=== PATIENT | female | born 1990 | race Caucasian/White ===

== ENCOUNTER 2019-05-27 11:03 | Emergency (ER) | payer OTHER, MEDICAID ==
[~2019-05-27] VITALS: Ht 165.1 cm; Wt 49.4 kg
--- NOTE | 2019-05-27 11:11 | NUR ---
ISABELLE, PD FOR MEDICAL CLEARANCE PRIOR TO BOOKING. ANXIOUS [employer]EL[employer], TO ER BED 11, HOOKED TO MONITOR, VSS. AWAITING MD KING
[2019-05-27 11:35] VITALS: BP 120/71
--- NOTE | 2019-05-27 11:36 | NUR ---
Amaya lee in ED - 05/27/19 at 1136 by MARYJO patient left via ambulatory accompanied by [employer] in custody. Denies any pain or discomfort.
--- NOTE | 2019-05-27 11:36 | NUR ---
Patient discharged in custody in stable condition. Written and verbal after care instructions given. Patient verbalizes understanding of instruction.
== END 2019-05-27 11:36 ==
LOC: ER 11:05
DX: F41.9 Anxiety disorder, unspecified (principal); F17.200 Nicotine dependence, unspecified, uncomplicated